=== PATIENT | male | born 1960 | race Caucasian/White ===

== ENCOUNTER 2019-09-28 05:19 | Inpatient (IN) ==
--- NOTE | 2019-09-11 16:11 | PAT Medication Instructions ---
Medication Instructions Date of Service September 11, 2019 Home Medications aspirin [Aspir-81] 81 mg PO DAILY diclofenac sodium 2 g TOPICAL UD PRN diclofenac sodium 50 mg PO BID PRN diltiazem HCl 240 mg PO QAM gabapentin 100 mg PO DAILY hydrochlorothiazide 25 mg PO QAM levothyroxine [Synthroid] 50 mcg PO QAM magnesium 420 mg PO BID metformin 500 mg PO BID omeprazole 20 mg PO QPM potassium gluconate 595 mg PO DAILY trandolapril 4 mg PO BID ASK your surgeon for instructions diclofenac sodium 50 mg PO BID PRN STOP taking 24 hours before surgery diclofenac sodium 2 g TOPICAL UD PRN DO NOT take the morning of surgery hydrochlorothiazide 25 mg PO QAM magnesium 420 mg PO BID metformin 500 mg PO BID potassium gluconate 595 mg PO DAILY trandolapril 4 mg PO BID Take morning of surgery With a small sip of water, OTHERWISE NOTHING TO EAT OR DRINK AFTER MIDNIGHT: aspirin [Aspir-81] 81 mg PO DAILY diltiazem HCl 240 mg PO QAM gabapentin 100 mg PO DAILY levothyroxine [Synthroid] 50 mcg PO QAM Take evening before surgery magnesium 420 mg PO BID metformin 500 mg PO BID omeprazole 20 mg PO QPM trandolapril 4 mg PO BID Other Notes If you have any questions please call us at [phone] or [phone] or [phone] or [phone]
--- NOTE | 2019-09-15 09:42 | Anesthesiology Consultation ---
Date of Service September 15, 2019 Assessment & Plan (1) Encounter for pre-operative examination: Per PAT assessment on 09/14: Travel screen- + [place] ([place]) for physical therapy. No known COVID-19 positive contacts. No current COVID-19 related symptoms. Surgeon arranging preop COVID testing. Awaiting results. - Check BSG AM DOS Chart Review Chart Review: Acceptable Risk for Surgery (pending COVID testing) and Patient seen in Pre Admission Testing Teaching & Discussion Pre-Anesthesia Teaching/Discussion Notes: Instructed NPO after midnight before surgery,except medications with 15 cc of water. Medication instructions provided according to the PAT guidelines. History Surgery Operation Date: 09/28/19 11:10 Proposed Procedures p Bilateral Total Knee Arthroplasty - aTno Vásquez DO Height/Weight Height: 6 ft 3 in Weight: 133 kg Allergies Allergy/AdvReac Type Severity Reaction Status Date / Time amoxicillin [From Augmentin] Allergy Unknown facial Verified 09/15/19 10:23 swelling, diffuse bumps clavulanic acid Allergy Unknown facial Verified 09/15/19 10:23 [From Augmentin] swelling, diffuse bumps latex Allergy Unknown skin Verified 09/15/19 10:23 irritation nickel Allergy Unknown per Verified 09/15/19 10:23 allergy testing clarithromycin [From Biaxin] AdvReac Unknown vomiting Verified 09/15/19 10:23 BANDAIDS Allergy Unknown skin Uncoded 09/15/19 10:23 irritation Medications Home Medications Medication Instructions Recorded Confirmed Last Taken aspirin [Aspir-81] 81 mg PO DAILY 09/08/19 09/08/19 Unknown diclofenac sodium 2 g TOPICAL UD PRN 09/08/19 09/08/19 Unknown diclofenac sodium 50 mg PO BID PRN 09/08/19 09/08/19 Unknown diltiazem HCl 240 mg PO QAM 09/08/19 09/08/19 Unknown gabapentin 100 mg PO DAILY 09/08/19 09/08/19 Unknown hydrochlorothiazide 25 mg PO QAM 09/08/19 09/08/19 Unknown levothyroxine [Synthroid] 50 mcg PO QAM 09/08/19 09/08/19 Unknown magnesium 420 mg PO BID 09/08/19 09/08/19 Unknown metformin 500 mg PO BID 09/08/19 09/08/19 Unknown omeprazole 20 mg PO QPM 09/08/19 09/08/19 Unknown potassium gluconate 595 mg PO DAILY 09/08/19 09/08/19 Unknown trandolapril 4 mg PO BID 09/08/19 09/08/19 Unknown Past Medical History Medical History (Updated 09/15/19 @ 15:43 by Ana Maria Reid) Acid reflux controlled Arthritis Back problem CKD (chronic kidney disease) mild/borderline- PCP monitoring Diabetes NIDDM High blood pressure High cholesterol Hypothyroidism Migraine follows with neurology ([place] Dr. [place]) Neuropathy toes Obesity Radiculopathy right quad/+ physical therapy Exercise / Class Metabolic Activity III < 4 Walking/Shop/Light housework Past Family History Family History Sister Family history of diabetes mellitus Father Family history of diabetes mellitus Past Surgical History Surgical History History of colonoscopy History of surgery GROIN (FATTY TUMOR EXCISION) History of tonsillectomy Past Anesthesia History No Family Hx of Anesthesia Complications and Other (angry/combative with anesthesia emergence (~2005/) ) History of PONV No Hx of PONV and No Hx of Motion Sickness Social History Smoking Status: Former smoker Do You Dip or Chew Tobacco: No (HX OF QUIT ) Smoking End Date: 1982 Hx Alcohol Use: Yes (HX OF , NONE CURRENT) Hx Substance Use: No substance use type: does not use Review of Systems Patient denies chest pain, shortness of breath, fever, chills, cough, wheezing, palpitations. Physical Exam Vital Signs VITALS BP 116/73 P 56 TEMP "normal" at [facility] entrance/declined updated at PAT visit SP02 95%RA RESP 18 PHYSICAL Full neck and c-spine range of motion. Full TMJ range of motion. TMD 3.5 finger breaths Mallampati Score 3 Dentition: upper partial, + crown on sides Lungs: clear throughout to auscultation Cardiac: regular rate and rhythm, no murmurs noted Spine: normal Carotid arteries: negative bruit Extremities: no edema Trimmed alvarado Testing Laboratory Results PT 10.4 Seconds (9.0-12.0) 09/15/19 10:18 INR 1.0 (0.9-1.1) 09/15/19 10:18 APTT 28.4 Seconds (21.0-31.0) 09/15/19 10:18 Blood Type A Positive 09/15/19 10:18 Antibody Screen NEGATIVE 09/15/19 10:18 09/03/19 WBC 6.6 H/H 15.0/46.1 PLATELETS 206 SODIUM 139 POTASSIUM 4.4 CHLORIDE 103 CO2 26 BUN 32 CREATININE 1.5 (WNL per [place] lab ranges) GLUCOSE 122 HGBA1C 6.3% Electrocardiogram Date: 07/14/19 SB with occasional PVC's at 59bpm. LAD. Chest X-Ray Date: 09/15/19 Findings: + NAD Echocardiogram Date: 09/22/18 LVEF 57%. Mild cLVH. Mild LAD/YVETTE. Trivial to mild MR. Mild TR. Trivial KS.
--- NOTE | 2019-09-15 10:49 | XRay Report ---
XR chest Pre-admission PA/Lat HISTORY: 59 years-old Male pat preoperative exam. No acute chest complaints COMPARISON: None TECHNIQUE: PA and lateral views of the chest FINDINGS: Cardiomediastinal and hilar silhouettes are within normal limits. No pneumothorax, pleural effusion, airspace consolidation or overt pulmonary edema. Bones of the chest appear grossly intact. IMPRESSION: No acute process. ACT 112: Negative or not required by law. The above report was generated using voice recognition software. It may contain grammatical, syntax o r spelling errors. Electronically signed by: Jean-Claude Mccarty M.D. 09/15/2019 10:48 AM
[2019-09-15 13:32] LABS: Partial Thromboplastin Time 28.4 Seconds (21.0-31.0); Prothrombin Time 10.4 Seconds (9.0-12.0)
--- NOTE | 2019-09-24 08:11 | History & Physical Report ---
Date of Service September 24, 2019 Assessment & Plan (1) Right knee DJD: We will proceed with bilateral total knee arthroplasties. Postoperatively he will be started on aspirin for DVT prophylaxis and kept overnight in the hospital for postoperative medical management. He plans to go to [facility] upon discharge. Alfonzo is a low risk for joint placement surgery without any major comorbidities. Present on Admission?: Yes (2) Left knee DJD: History of Present Illness Chief Complaint: Primary osteoarthritis of both knees Primary Care Provider: Ronald Prather MD Alfonzo is a pleasant 59-year-old male who is been ill with chronic increasing bilateral knee pain. He has been followed by my partner who was giving him serial injections of his knees. Unfortunately injections are not effective anymore. X-rays and clinical examination have been diagnostic for advanced osteoarthritis of both knees. After failing extensive conservative treatment, he has elected to proceed with bilateral total knee arthroplasties. Allergies Allergy/AdvReac Type Severity Reaction Status Date / Time amoxicillin [From Augmentin] Allergy Unknown facial Verified 09/15/19 10:23 swelling, diffuse bumps clavulanic acid Allergy Unknown facial Verified 09/15/19 10:23 [From Augmentin] swelling, diffuse bumps latex Allergy Unknown skin Verified 09/15/19 10:23 irritation nickel Allergy Unknown per Verified 09/15/19 10:23 allergy testing clarithromycin [From Biaxin] AdvReac Unknown vomiting Verified 09/15/19 10:23 BANDAIDS Allergy Unknown skin Uncoded 09/15/19 10:23 irritation Home Medications Home Medications Medication Instructions Recorded Confirmed Type aspirin [Aspir-81] 81 mg PO DAILY 09/08/19 09/08/19 History diclofenac sodium 2 g TOPICAL UD PRN 09/08/19 09/08/19 History diclofenac sodium 50 mg PO BID PRN 09/08/19 09/08/19 History diltiazem HCl 240 mg PO QAM 09/08/19 09/08/19 History gabapentin 100 mg PO DAILY 09/08/19 09/08/19 History hydrochlorothiazide 25 mg PO QAM 09/08/19 09/08/19 History levothyroxine [Synthroid] 50 mcg PO QAM 09/08/19 09/08/19 History magnesium 420 mg PO BID 09/08/19 09/08/19 History metformin 500 mg PO BID 09/08/19 09/08/19 History omeprazole 20 mg PO QPM 09/08/19 09/08/19 History potassium gluconate 595 mg PO DAILY 09/08/19 09/08/19 History trandolapril 4 mg PO BID 09/08/19 09/08/19 History Past Med/Surg History Medical History Acid reflux controlled Arthritis Back problem CKD (chronic kidney disease) mild/borderline- PCP monitoring Diabetes NIDDM High blood pressure High cholesterol Hypothyroidism Migraine follows with neurology ([place]) Neuropathy toes Obesity Radiculopathy right quad/+ physical therapy Surgical History History of colonoscopy History of surgery GROIN (FATTY TUMOR EXCISION) History of tonsillectomy Family History Sister Family history of diabetes mellitus Father Family history of diabetes mellitus Social History Smoking Status: Former smoker Hx Alcohol Use: Yes (HX OF , NONE CURRENT) Hx Substance Use: No Preferred Language: Bruneian Communication Ability: Effective Teacher Of The Sight Impaired Required: No Beliefs That Will Affect Care: Jewish Jewish Beliefs: BAHAI Current Living Situation: Spouse Feels Safe at Home: Yes Review of Systems Review of Systems: All systems reviewed & are unremarkable except as noted in HPI & below Physical Exam Constitutional: WD/WN, vitals as above Eyes: PERRL, conjunctivae normal, anicteric sclerae ENMT: external ear and nose normal, oropharynx normal Neck: trachea midline, no thyromegaly Respiratory: normal respiratory effort Cardiovascular: RRR, no murmur, no edema Gastrointestinal (Abdomen): normal bowel sounds, soft, nontender, no hepatosplenomegaly Musculoskeletal: On physical examination of both knees there is a trace effusion. There is near full range of motion and no evidence of instability. There is significant tenderness palpation along the medial and lateral joint lines and over the distal femoral condyles. Psychiatric: A+Ox3, euthymic affect Results & Data Results & Data ([facility]) Diagnostic Findings Radiographs of the knees demonstrate advanced osteoarthritis with joint space narrowing osteophyte formation and chvi-[id number]-wlkg articulation. PG Care Time/CCT Total # of Minutes Spent Total Time Spent with Patient: Total time spent is greater than 50% in coordination of care (as documented) at patient's floor/unit and/or counseling patient: Coding Level of Care Code 37457 Initial Inpt Care Lvl 3 Diagnoses Right knee DJD M17.11 Left knee DJD M17.12
[2019-09-28] MEDS ORDERED: LR 500ML BOLUS, THEN 15ML/HR IV SCH (06:00)
[2019-09-28] MEDS ORDERED: LR 60ML/HR IV SCH (06:00)
[2019-09-28] MEDS ORDERED: ACETAMINOPHEN 500 MG TAB PO SCH (06:00)
[2019-09-28] MEDS ORDERED: TRANEXAMIC ACID 1,000 MG **IV Intra-op IV SCH (06:00)
[2019-09-28] MEDS ORDERED: FAMOTIDINE 20 MG TAB PO SCH (06:00)
[2019-09-28] MEDS ORDERED: CEFAZOLIN 3000MG 72.5 ML IV SCH (06:00)
[2019-09-28] MEDS ORDERED: TRANEXAMIC ACID 1,000 MG **IV Pre-op IV SCH (06:00)
[2019-09-28] MEDS ORDERED: dexAMETHasone 4 MG TAB PO SCH (06:00)
[2019-09-28] MEDS ORDERED: ROPIVACAINE 0.5% HCL/PF 150 MG, BUPIVACAINE 0.5% MPF 30 ML, EPINEPHrine 30MG/30ML (OR U... INSTIL SCH (06:00)
[2019-09-28] MEDS ORDERED: GABAPENTIN 600 MG DOSE PO SCH (06:00)
[2019-09-28] MEDS ORDERED: BUPIVACAINE 0.5 % 5 MG/1 ML PF 10ML VIAL ONE (06:35)
[2019-09-28] MEDS ORDERED: BUPIVACAINE 0.25% 30 ML VIAL ONE (06:35)
--- NOTE | 2019-09-28 06:46 | History & Physical Bridge Note ---
Date of Service September 28, 2019 History & Physical Bridge Note I have examined the patient, reviewed the History & Physical and in the interval since the performance of the History & Physical I have noted the following changes of clinical significance: no changes noted
[2019-09-28] MEDS ORDERED: MIDAZOLAM HCL 1 MG/ML 2ML VIAL ONE (06:50)
[2019-09-28] MEDS ORDERED: fentaNYL citrate 100 MCG/2 ML VIAL ONE (06:50)
[2019-09-28] MEDS ORDERED: ORTHO JOINT ANESTHETIC ONE (07:01)
[2019-09-28] MEDS ORDERED: CEFAZOLIN 3000MG 72.5 ML IV ONE (07:12)
[2019-09-28] MEDS ORDERED: CEFAZOLIN 3000MG/72.5 ML BAG IV ONE (07:19)
[2019-09-28] MEDS ORDERED: ePHEDrine sulfate 50 MG/ML SYR ONE (08:07)
[2019-09-28] MEDS ORDERED: ONDANSETRON INJ 2 MG/ML 2 ML VIAL IV PRN ×2 (08:07→11:30)
[2019-09-28] MEDS ORDERED: LIDOCAINE HCL 2% 2 ML VIAL/AMP(20MG/ML) INFIL ONE (08:07)
[2019-09-28] MEDS ORDERED: ePHEDrine sulfate 50 MG/ML AMP IV PRN (08:07)
[2019-09-28] MEDS ORDERED: ONDANSETRON INJ 2 MG/ML 2 ML VIAL ONE (08:07)
[2019-09-28] MEDS ORDERED: ATROPINE SULFATE 0.1 MG/ML 10ML SYR IV PRN (08:07)
[2019-09-28] MEDS ORDERED: PROPOFOL IV EMULSION 10 MG/ML 20 ML VIAL IV ONE (08:07)
[2019-09-28] MEDS ORDERED: GLYCOPYRROLATE 0.2 MG/ML VIAL ONE (08:07)
--- NOTE | 2019-09-28 10:19 | Operative Report ---
PG Post Operative Report Pre & Post Diagnosis Operation Date: 09/28/19 07:15 Pre-Op Diagnosis: BILATERAL KNEE DEGENERATIVE JOINT DISEASE Post-Op Diagnosis: BILATERAL KNEE DEGENERATIVE JOINT DISEASE I identified the patient and participated in the time-out.: Yes Procedure Operation Date: 09/28/19 07:15 Actual Procedures p Bilateral Total Knee Arthroplasty, Cemented(Bilateral) - Tano Vásquez DO Surgeon Tano áVsquez DO Promotions Executive Producer Tano Cintron PAC Estimated Blood Loss 50 Findings Consistent with Post-Op Diagnosis Specimens Bilateral femoral and tibial bone Complications none Disposition Disposition: Recovery Room Indications Alfonzo is a pleasant 59-year-old male who is been dealing with chronic increasing bilateral knee pain. X-rays and clinical examination have been diagnostic for primary osteoarthritis of both knees. After failing conservative treatment, he elected proceed with bilateral total knee arthroplasties. Description of Procedure Alfonzo arrived [facility] for the above procedure. He was seen in the preoperative holding area and both knees were identified and signed. He was given a preoperative antibiotic, TXA, a spinal anesthetic and adductor nerve blocks. He was taken back to the operating room and laid on the table in supine position. He was given basic sedation. Both knees were then prepped and draped in sterile fashion. A timeout was done, and the patient and the operative extremities were properly identified. Right knee implants used: I used a Vivian Persona total knee arthroplasty system with a size 12 standard femur, J tibia, 35 patella, and a size 10 medial congruent polyethylene bearing. All components were cemented in place with Palacos G cement. A midline incision was made directly over the patella. Dissection was taken down to the extensor mechanism. A subvastus arthrotomy was used. The medial retinaculum was released and the fat pad was mostly excised. The knee was flexed and the ACL, PCL, and meniscus were removed. A drill was sent down the center of the femoral canal followed by an intramedullary thuan. Off that thuan a distal femoral cutting block was placed. 9 mm was resected off the distal femur at 5 of valgus. A posterior referencing AP sizing guide was then placed on the distal femur. The femur measured to be a size 12. 2 drill holes were placed in 3 of external rotation. A 4-in-1 cutting block was then impacted into place. Anterior, posterior, and chamfer cuts were then made. The proximal tibia was then exposed. An external tibial alignment guide was placed. A tibial cut guide was then anchored in place to resect 2 mm off the low medial side. The proximal tibia was then resected. The tibia measured to be a size J. The tibial plate was then placed in the appropriate rotation and the tibia was drilled and punched. The posterior aspect of the knee was then opened up and any additional meniscus fragments and osteophytes were removed. Trial components were then placed. I used a size 10 medial congruent polyethylene insert. The knee was brought through a full range of motion and felt to be stable. The patella was then everted and 8 mm was resected off the posterior aspect of the patella. The patella measured to be a size 35. 3 peg holes were then drilled. A trial patella was placed. The knee was once again brought through a full range of motion and felt to be stable. Trial components were then removed. The surrounding soft tissues were injected with 50 cc of an orthopedic pain control cocktail. All components were then cemented into place with Palacos G cement. The final polyethylene insert was then snapped into place and the anterior bar was locked. Once cement was dry the tourniquet was deflated. Hemostasis was obtained. A dilute betadyne lavage was then done for 3 minutes. The joint was then irrigated with normal saline solution. The subvastus arthrotomy was then closed with #1 Vicryl suture. The skin was closed with 2-0 Vicryl, 3-0V lock suture, and daniele. A soft compressive dressing was placed. Left knee implants used: I used a Vivian Persona total knee arthroplasty system with a size 12 standard femur, J tibia, 35 patella, and a size 11 medial congruent polyethylene bearing. All components were cemented in place with Palacos G cement. A midline incision was made directly over the patella. Dissection was taken down to the extensor mechanism. A subvastus arthrotomy was used. The medial retinaculum was released and the fat pad was mostly excised. The knee was flexe d and the ACL, PCL, and meniscus were removed. A drill was sent down the center of the femoral canal followed by an intramedullary thuan. Off that thuan a distal femoral cutting block was placed. 9 mm was resected off the distal femur at 5 of valgus. A posterior referencing AP sizing guide was then placed on the distal femur. The femur measured to be a size 12. 2 drill holes were placed in 3 of external rotation. A 4-in-1 cutting block was then impacted into place. Anterior, posterior, and chamfer cuts were then made. The proximal tibia was then exposed. An external tibial alignment guide was placed. A tibial cut guide was then anchored in place to resect 2 mm off the low medial side. The proximal tibia was then resected. The tibia measured to be a size J. The tibial plate was then placed in the appropriate rotation and the tibia was drilled and punched. The posterior aspect of the knee was then opened up and any additional meniscus fragments and osteophytes were removed. Trial components were then placed. I used a size 11 medial congruent polyethylene insert. The knee was brought through a full range of motion and felt to be stable. The patella was then everted and 8 mm was resected off the posterior aspect of the patella. The patella measured to be a size 35. 3 peg holes were then drilled. A trial patella was placed. The knee was once again brought through a full range of motion and felt to be stable. Trial components were then removed. The surrounding soft tissues were injected with 50 cc of an orthopedic pain control cocktail. All components were then cemented into place with Palacos G cement. The final polyethylene insert was then snapped into place and the anterior bar was locked. Once cement was dry the tourniquet was deflated. Hemostasis was obtained. A dilute betadyne lavage was then done for 3 minutes. The joint was then irrigated with normal saline solution. The subvastus arthrotomy was then closed with #1 Vicryl suture. The skin was closed with 2-0 Vicryl, 3-0V lock suture, and daniele. A soft compressive dressing was placed. He was then transferred to a hospital bed and taken to the postanesthesia care unit in stable condition. He tolerated the procedure well. Tano Citnron PA-C, was present for the entire procedure. He was critical for patient positioning, prepping, draping, retraction exposure, wound closure and application of sterile dressing. I attest to the content of the Intraoperative Record and any orders documented therein. Any exceptions are noted below.
[2019-09-28] MEDS: fentaNYL citrate 100 MCG/2 ML VIAL IV PRN ×2 (10:35→10:40)
--- NOTE | 2019-09-28 10:45 | XRay Report ---
XR knee LT 1 or 2V routine CLINICAL HISTORY: Surgical Post Op postoperative evaluation COMPARISON: None. DISCUSSION: Anatomic alignment post total left knee arthroplasty. Good contact between prosthetic and underlying bone. Expected postoperative soft tissue change IMPRESSION: Anatomic alignment post total left knee arthroplasty. ACT 112: Negative or not required by law. The above report was generated using voice recognition software. It may contain grammatical, syntax or spelling errors. Electronically signed by: El Dutta M.D. 09/28/2019 10:44 AM
--- NOTE | 2019-09-28 10:59 | XRay Report ---
TWO VIEWS RIGHT KNEE CLINICAL HISTORY: Postoperative examination. FINDINGS: AP and crosstable lateral portable views of the right knee are obtained. A right knee arthr oplasty is in near anatomic alignment. There has been undersurface remodeling of the patella. No acut e fracture is seen. There are expected postoperative changes around the knee including skin clips, a surgical drain, soft tissue edema, and subcutaneous gas. IMPRESSION: Expected postoperative changes status post right knee arthroplasty. No acute fracture is seen. ACT 112: Negative or not required by law. Electronically signed by: Frank Ozuna M.D. 09/28/2019 10:58 AM
[2019-09-28] MEDS ORDERED: METOCLOPRAMIDE HCL INJ 5 MG/ML 2 ML VIAL IV PRN (11:30)
[2019-09-28] MEDS ORDERED: bisacodyL 10 MG SUPP PR PRN (11:30)
[2019-09-28] MEDS ORDERED: CEFAZOLIN 2000MG 2,000 MG/15 ML SYR IV SCH (11:30)
[2019-09-28] MEDS ORDERED: HYDROmorphone INJ 0.5 MG/0.5 ML SYR IV PRN (11:30)
[2019-09-28] MEDS ORDERED: NALOXONE HCL 0.4 MG/1 ML VIAL/CARP IV PRN (11:30)
[2019-09-28] MEDS: SODIUM CHLORIDE 0.9% 1000ML 1,000 ML IV SCH ×2 (11:58→20:53)
[2019-09-28] MEDS: KETOROLAC 30 MG/ML VIAL IV SCH ×2 (12:16→17:38)
--- NOTE | 2019-09-28 12:32 | Anesthesiology Progress Note ---
Date of Service September 28, 2019 Anesthesia Post Procedure Vital Signs Vital Signs: Temp Pulse Pulse Resp BP Pulse Ox 09/28/19 12:15 36.6 C 46 L 18 133/82 95 09/28/19 11:45 36.6 C 48 L 16 117/77 98 09/28/19 11:15 36.4 C L 49 L 16 127/75 96 09/28/19 10:50 36.6 C 54 L 16 116/71 98 09/28/19 10:40 57 L 16 118/59 L 98 09/28/19 10:30 36.6 C 61 16 127/77 95 09/28/19 10:20 60 16 117/66 95 09/28/19 10:14 36.6 C 63 16 114/61 95 09/28/19 05:56 37 C 64 18 132/85 95 Pain Intensity Right Leg: Pain Intensity: 5 Transfer of Care Handoff Completed per policy Notes Mental Status: alert / awake / arousable and participated in evaluation Nausea / Vomiting: adequately controlled Pain: adequately controlled Airway Patency, RR, SpO2: stable & adequate BP & HR: stable & adequate Hydration State: stable & adequate Neuraxial Anesthesia: was administered and sensory block is resolving Anesthetic Complications: no major complications apparent and Pt Satisfied with anesthetic care
[2019-09-28] MEDS ORDERED: PHARMACY GLYCEMIC MGMT CONSULT PRN (12:49)
[2019-09-28] MEDS ORDERED: INSULIN GLARGINE SOLOSTAR 100 UNITS/ML 3 ML PEN SC ONE ×2 (13:00→21:00)
--- NOTE | 2019-09-28 13:14 | Pharmacy Report ---
Pharmacy Glycemic Short Note 2 - Date of Service September 28, 2019 - Glycemic Short BSG Results (Last 24 hours): 09/28/19 09/28/19 09/28/19 06:06 10:18 12:17 POC Glucose 130 H 160 H 173 H OUTPATIENT ANTIDIABETIC REGIMEN: * Metformin 500mg PO BID * HbA1c: pending with AM labs ASSESSMENT: * Mr Hoyt is a 59yo diabetic male POD 0 s/p bilateral TKA this morning. * Patient received DXM 8mg PO pre-op this morning along with DXM in his ortho mix. Mr Hoyt is scheduled to receive an additional PO dose of DXM tomorrow morning. This is expected to contribute to significant steroid-induced hyperglycemia. * On admission, oral agents held and pt initiated on basal/bolus insulin regimen in an effort to maintain adequate glycemic control to promote wound healing and minimize risk of infection. PLAN FOR INPATIENT GLYCEMIC CONTROL: * Hold outpatient oral diabetes medications * Basal insulin * Lantus 30 units SQ x1 dose on admission, then * Lantus at bedtime per scale (see MAR for details) * Bolus insulin * NovoLog per scale ACHS or Q6hrs while NPO * Goal Range: Low 110 mg/dL - High 140 mg/dL * Correction Factor: 15 mg/dL/unit * Nutritional / Prandial insulin per carb ratio of 1 unit per 6 grams CHO consumed PLAN FOR DISCHARGE: * pending A1c results
[2019-09-28] MEDS ORDERED: GLUCAGON FOR INJ 1 MG VIAL IM PRN (13:15)
[2019-09-28] MEDS ORDERED: GLUCOSE 10 TABS/TUBE PO PRN (13:15)
[2019-09-28] MEDS ORDERED: DEXTROSE 50% 50 ML SYRINGE IV PRN (13:15)
[2019-09-28] MEDS ORDERED: CARBOHYDRATES FOR HYPOGLYCEMIA PO PRN (13:15)
[2019-09-28] MEDS ORDERED: GLUCOSE 40% GEL 15 GM TUBE PO PRN (13:15)
[2019-09-28] MEDS: ACETAMINOPHEN 500 MG TAB PO SCH ×2 (13:18→21:01)
[2019-09-28] MEDS: INSULIN ASPART 100 UNITS/ML 3 ML PEN SC SCH ×3 (13:42→20:54)
[2019-09-28] MEDS: MAGNESIUM OXIDE 400 MG TAB PO SCH (15:36)
[2019-09-28] MEDS: CEFAZOLIN 2000MG 2,000 MG/15 ML SYR IV SCH (15:37)
[2019-09-28] MEDS: OXYCODONE HCL IR 5 MG TAB (IMMEDIATE RELEASE) PO PRN ×2 (15:39→20:59)
[2019-09-28] MEDS: SENNA 8.6 MG TAB PO SCH (20:12)
[2019-09-28] MEDS: DOCUSATE SODIUM 100 MG CAP PO SCH (20:12)
[2019-09-28] MEDS: PANTOprazole 40 MG TAB PO SCH (20:13)
[2019-09-28] MEDS: lisinopriL 20 MG TAB PO SCH (20:14)
[2019-09-28] MEDS: ASPIRIN 81 MG ECTAB PO SCH (20:16)
[2019-09-29] MEDS: CEFAZOLIN 2000MG 2,000 MG/15 ML SYR IV SCH (00:13)
[2019-09-29] MEDS: KETOROLAC 30 MG/ML VIAL IV SCH ×4 (00:14→17:17)
[2019-09-29] MEDS: OXYCODONE HCL IR 5 MG TAB (IMMEDIATE RELEASE) PO PRN ×4 (03:50→21:30)
[2019-09-29 05:52] LABS: Hematocrit (blood only) 33.6 % (42-52); Hemoglobin 11.3 g/dL (14.0-18.0); Mean Corpuscular Hemoglobin 30.1 pg (25-34); Mean Corpuscular Hgb Conc 33.6 g/dL (32-36); Mean Corpuscular Volume 89.4 fL (80-100); Mean Platelet Volume 10.8 fL (7.4-10.4); Platelet Count 174 K/uL (130-400); RDW Coefficient of Variation 13.3 % (11.5-14.5); RDW Standard Deviation 43.2 fL (36.4-46.3); Red Blood Count 3.76 M/uL (4.7-6.1); White Blood Count 12.43 K/uL (4.8-10.8)
[2019-09-29] MEDS: hydroCHLOROthiazide 25 MG TAB PO SCH (06:12)
[2019-09-29] MEDS: MAGNESIUM OXIDE 400 MG TAB PO SCH ×2 (06:12→20:04)
[2019-09-29] MEDS: lisinopriL 20 MG TAB PO SCH ×2 (06:12→20:04)
[2019-09-29] MEDS: dilTIAZem HCL 240 MG CAPCR PO SCH (06:13)
[2019-09-29] MEDS: LEVOTHYROXINE SODIUM 50 MCG TABLET PO SCH (06:13)
[2019-09-29] MEDS: ACETAMINOPHEN 500 MG TAB PO SCH ×3 (06:14→21:31)
[2019-09-29] MEDS: DOCUSATE SODIUM 100 MG CAP PO SCH ×2 (06:14→20:04)
[2019-09-29] MEDS: ASPIRIN 81 MG ECTAB PO SCH ×2 (06:15→20:03)
[2019-09-29 06:21] LABS: BUN Creatinine Ratio 16.7 (10-20); Calcium 8.4 mg/dl (8.5-10.1); Creatinine Clr Calc Pharmacy 101.1 ml/min; Est GFR (African American) 83.5; Est GFR (Non-African American) 72.1; Potassium 3.8 mmol/L (3.5-5.1)
[2019-09-29] MEDS: MAGNESIUM HYDROXIDE SUSP 30 ML UDC PO PRN ×2 (06:25→16:01)
[2019-09-29 06:30] LABS: Estimated Average Glucose 126 mg/dl
--- NOTE | 2019-09-29 07:12 | Orthopedic Progress Note ---
Date of Service September 29, 2019 Assessment & Plan (1) Status post bilateral knee replacements: Overall he is doing as well as expected. He is on aspirin for DVT today for ambulation and range of motion exercises. We will keep him in the hospital today for pain control. We plan to discharge him to [facility] tomorrow. Present on Admission?: Yes Subjective Alfonzo was seen and examined at bedside this morning. Overall he is doing fairly well. He has been up and ambulating around the nurses station. He has been doing his exercises. He is not having much pain in the knees. He has no complaints. Physical Exam Musculoskeletal: Semination of both knees, the dressings are clean and dry. His legs are out in full extension. He has active dorsiflexion and plantar Results & Data ([facility]) Vital Signs (Past 12 Hours) Vital Signs Temp Pulse Resp BP Pulse Ox 09/29/19 06:58 36.3 C L 47 L 16 119/66 96 09/29/19 03:17 36.3 C L 59 L 16 104/62 95 09/28/19 23:10 36.3 C L 52 L 16 117/69 94 Laboratory Results H & H 09/29/19 Range/Units 05:17 Hgb 11.3 L (14.0-18.0) g/dL Hct 33.6 L (42-52) % Coagulation 09/15/19 Range/Units 10:18 INR 1.0 (0.9-1.1) Diagnostic Findings Postoperative x-rays of both knees show the prosthesis to be in anatomic alignment without any evidence of fracture, dislocation, or loosening PG Care Time/CCT Total # of Minutes Spent Total Time Spent with Patient: Total time spent is greater than 50% in coordination of care (as documented) at patient's floor/unit and/or counseling patient: Coding Level of Care Code None Diagnoses Status post bilateral knee replacements Z96.653
[2019-09-29] MEDS ORDERED: dexAMETHasone 4 MG TAB PO SCH (08:00)
[2019-09-29] MEDS ORDERED: INSULIN GLARGINE SOLOSTAR 100 UNITS/ML 3 ML PEN SC ONE ×2 (08:00→09:00)
[2019-09-29] MEDS: MULTIVITAMIN TAB PO SCH (08:38)
[2019-09-29] MEDS: INSULIN ASPART 100 UNITS/ML 3 ML PEN SC SCH ×4 (08:42→20:05)
[2019-09-29] MEDS ORDERED: NON-FORMULARY MEDICATION (Potassium Gluconate 595 MG) PO SCH (09:00)
--- NOTE | 2019-09-29 10:14 | Pharmacy Report ---
Pharmacy Glycemic Short Note 2 - Date of Service September 29, 2019 - Glycemic Short BSG Results (Last 24 hours): 09/28/19 09/28/19 09/28/19 10:18 12:17 17:12 Glucose POC Glucose 160 H 173 H 199 H 09/28/19 09/29/19 09/29/19 20:31 05:17 08:17 Glucose 156 H POC Glucose 179 H 156 H OUTPATIENT ANTIDIABETIC REGIMEN: * Metformin 500mg PO BID * HbA1c: 6.0% (09/29/19) ASSESSMENT: 09/29/19: * Mr Hoyt received 55 units of insulin yesterday. * 40 units of basal insulin * 15 units of prandial/correctional insulin * BSGs ranged from 130-199 during the past 24 hours. * Patient received another dose of PO dexamethasone this morning, so another dose of Lantus was ordered this morning. Fasting BSG indicates that basal insulin dosing was appropriate yesterday. * Will tighten Novolog parameters if it does not appear as though BSGs are adequately controlled today. 09/28/19 * Mr Hoyt is a 59yo diabetic male POD 0 s/p bilateral TKA this morning. * Patient received DXM 8mg PO pre-op this morning along with DXM in his ortho mix. Mr Hoyt is scheduled to receive an additional PO dose of DXM tomorrow morning. This is expected to contribute to significant steroid-induced hy perglycemia. * On admission, oral agents held and pt initiated on basal/bolus insulin regimen in an effort to maintain adequate glycemic control to promote wound healing and minimize risk of infection. PLAN FOR INPATIENT GLYCEMIC CONTROL: * Hold outpatient oral diabetes medications * Basal insulin * Lantus 40 units x1 dose this morning * No further Lantus orders anticipated at this time. If additional doses of DXM are ordered, will re-assess. * Bolus insulin * NovoLog per scale ACHS or Q6hrs while NPO * Goal Range: Low 110 mg/dL - High 140 mg/dL * Correction Factor: 15 mg/dL/unit * Nutritional / Prandial insulin per carb ratio of 1 unit per 6 grams CHO consumed PLAN FOR DISCHARGE: * Patient's A1c (6.0%) indicates excellent glycemic control as an outpt. * Expect that patient may resume home regimen on discharge, as long as he does not report having episodes of hypoglycemia.
[2019-09-29] MEDS ORDERED: SOD PHOSPHATE/SOD BIPHOSPHATE ENEMA 132 ML BTL PR STA (16:34)
[2019-09-29] MEDS ORDERED: bisacodyL 5 MG TABEC PO ONE (19:38)
[2019-09-29] MEDS: SENNA 8.6 MG TAB PO SCH (20:03)
[2019-09-29] MEDS: PANTOprazole 40 MG TAB PO SCH (20:04)
[2019-09-30] MEDS: KETOROLAC 30 MG/ML VIAL IV SCH ×2 (00:55→06:23)
[2019-09-30] MEDS: ACETAMINOPHEN 500 MG TAB PO SCH ×3 (06:20→22:04)
[2019-09-30] MEDS: DOCUSATE SODIUM 100 MG CAP PO SCH ×2 (06:21→20:56)
[2019-09-30] MEDS: ASPIRIN 81 MG ECTAB PO SCH ×2 (06:21→20:56)
[2019-09-30] MEDS: LEVOTHYROXINE SODIUM 50 MCG TABLET PO SCH (06:21)
[2019-09-30] MEDS: MAGNESIUM OXIDE 400 MG TAB PO SCH ×2 (06:21→20:56)
[2019-09-30] MEDS: dilTIAZem HCL 240 MG CAPCR PO SCH (06:21)
[2019-09-30] MEDS: hydroCHLOROthiazide 25 MG TAB PO SCH (06:21)
[2019-09-30] MEDS: MULTIVITAMIN TAB PO SCH (06:21)
[2019-09-30] MEDS: lisinopriL 20 MG TAB PO SCH ×2 (06:21→20:57)
--- NOTE | 2019-09-30 07:23 | Orthopedic Progress Note ---
Date of Service September 30, 2019 Assessment & Plan (1) Status post bilateral knee replacements: Overall he is doing very well. Is not having too much pain in the knees. He is participating well with physical therapy. He is concerned about being discharged to home and being able to take care of himself, especially after bilateral knee replacements. We will likely get him set up to [facility] later today. He can follow-up with orthopedics in 2 weeks. He is on aspirin for DVT prophylaxis. Present on Admission?: Yes Subjective Alfonzo was seen and examined at bedside this morning. Overall he is doing very well. Is not having too much pain in the knees. He has been up and ambulating around the nurses station. He was able to have a bowel movement yesterday after multiple laxatives. He has no complaints. Physical Exam Musculoskeletal: On physical examination of both knees, the dressings have been changed and the Silverlon dressing is clean and dry. His leg lengths are equal. He has active dorsiflexion and plantarflexion of both ankles. Results & Data ([facility]) Vital Signs (Past 12 Hours) Vital Signs Temp Pulse Resp BP Pulse Ox 09/30/19 06:51 36.4 C L 71 18 157/78 H 95 09/30/19 06:29 71 157/78 H 09/29/19 23:51 36.4 C L 71 18 147/74 H 95 PG Care Time/CCT Total # of Minutes Spent Total Time Spent with Patient: Total time spent is greater than 50% in coordination of care (as documented) at patient's floor/unit and/or counseling patient: Coding Level of Care Code None Diagnoses Status post bilateral knee replacements Z96.653
--- NOTE | 2019-09-30 07:25 | Discharge Summary ---
Date of Service September 30, 2019 Admission HPI Per Admitting Provider Alfonzo is a pleasant 59-year-old male who is been ill with chronic increasing bilateral knee pain. He has been followed by my partner who was giving him serial injections of his knees. Unfortunately injections are not effective anymore. X-rays and clinical examination have been diagnostic for advanced osteoarthritis of both knees. After failing extensive conservative treatment, he has elected to proceed with bilateral total knee arthroplasties. Principal Diagnosis Bilateral knee replacements Discharge Data Allergies Allergy/AdvReac Type Severity Reaction Status Date / Time amoxicillin [From Augmentin] Allergy Unknown facial Verified 09/28/19 05:46 swelling, diffuse bumps clavulanic acid Allergy Unknown facial Verified 09/28/19 05:46 [From Augmentin] swelling, diffuse bumps latex Allergy Unknown skin Verified 09/28/19 05:46 irritation nickel Allergy Unknown per Verified 09/28/19 05:46 allergy testing clarithromycin [From Biaxin] AdvReac Unknown vomiting Verified 09/28/19 05:46 BANDAIDS Allergy Unknown skin Uncoded 09/15/19 10:23 irritation Consultations 09/28/19 11:30 Consult Case Management - Discharge Planning Routine Procedures Performed Operation Date: 09/28/19 07:15 Actual Procedures p Bilateral Total Knee Arthroplasty, Cemented(Bilateral) - Tano Vásquez DO Ordered Studies 09/28/19 05:00 US - OR guided needle placemen Routine Hospital Course (1) Status post bilateral knee replacements: On September 28, 2019 Alfonzo arrived at [facility] and underwent bilateral knee replacements without complication. He had a spinal anesthetic. Postoperatively he was started on aspirin for DVT prophylaxis and transferred to the general orthopedic floors. His hospital course was uneventful. On postop day #1 his H&H was stable and his pain was well controlled. He was able to participate well with physical therapy doing ambulation and range of motion exercises. On postop day #2 he continued to do fairly well. His dressings were changed. He worked with physical therapy 1 more time. He was then discharged to [facility]. He will follow-up with orthopedics in 2 weeks. Total Time Total Time Spent Total Time Spent (In Minutes): 20 Discharge Plan Discharge Items Patient Disposition: Transfer Inpatient Rehab Fac Reason For Visit: BILATERAL KNEE DEGENERATIVE JOINT DISEASE Discharge Diagnosis: Bilateral knee replacement Activity: As commented below Non-emergency contact: Surgeon Call non-emergency contact if: your wound has increased redness and your wound has increased drainage Follow-up/Referrals: Ronald Prather MD [Primary Care Provider] - Diet: Regular Addtl Attending Provider Instructions: Activity and Therapy Recommendations: * If you are using [facility] then therapy will be provided at your home until they feel you have accomplished all of your goals. * If you are using [facility] then Physical Therapy will be provided until they feel you are ready to start Outpatient Physical Therapy. * If you are not using home therapy then Outpatient Physical Therapy should start about 3-5 days from your day of surgery. Therapy will last about 6-10 weeks * It is important not to put a pillow under your knee when you are relaxing or sleeping. It is just as important to make sure you are getting your knee perfectly straight as it is to regain your knee bend. * You were shown a series of exercises in the hospital. Do these exercises three times each day including the exercises you were shown in physical therapy. * Get up and walk several times each day. For the first four weeks, try not to stand or walk for more than one hour at a time. If you do stand or walk for more than one hour, you will not hurt anything, but your leg will likely swell. * As you feel comfortable, you may change from the walker or crutches to a cane and then to independent walking. Medications: * Narcotic You will likely be sent home from the hospital with a prescription for the narcotic pain medication that worked best throughout your stay. * Aspirin Most patients will be required to take Aspirin 81mg twice a day for 6 weeks after surgery. This is obtained [id number] and a prescription is not necessary. * Other medications may be prescribed for specific circumstances. If you have any questions, please call the office at . * Resume previous home medications unless otherwise instructed TEDs/Elastic Stockings: The white elastic stockings help limit swelling and prevent blood clots from forming in your legs.~ The more you wear them, the more they work. Wear them for six weeks. Dressing Care: Leave the Silverlon dressing in place for 7 days. After 7 days remove the dressing. If the incision is not draining then you may leave the daniele open to air. If there is a little bit of drainage or if the daniele are getting stuck on your clothing then cover the incision with a dry dressing. The daniele will be removed at your 2 week follow-up appointment. Showering: You may shower with the Silverlon dressings in place. After 7 days you may remove the dressing and shower with the daniele exposed Let the soapy shower water run over the daniele and pat them dry. Do not scrub or soak the incision. Things To Watch For: * Drainage from the incision site that occurs more than one week after your surgery. * Increased redness at the incision site. * Fever above 102 degrees Fahrenheit. * Unusual chest pain or shortness of breath. * Call [facility] at with any of the above problems Follow-Up Visit: Follow-up with Dr. Vásquez's PA (Tano Cintron) 2-3 weeks after your day of cosme rgery. He will remove your daniele and answer any questions. If you have any additional questions or concerns, Dr Vásquez is usually in the office at the same time and will be available An appointment was probably scheduled when you signed-up for surgery in the office. If you have any questions call Office Instructions: More detailed instructions as well as Frequently Asked Questions were provided in a folder by our office when you signed-up for surgery. Please review these instructions when you get home. If you have any further questions or concerns, please feel free to call the office at [phone] Pending Studies at Discharge: No Stand-Alone Forms: My [facility] Skilled Items Patient informed of condition?: Yes DNR: No Discharge Level of Care: Acute rehab Communicable Disease: No Discharge Prognosis: Improving Lines: None Urinary Catheter: No Medications and DC Order Prescriptions: New oxycodone 5 mg Tablet 5 mg PO Q4H PRN (Reason: pain) Qty: 30 RF: 0 Continued metformin 500 mg Tablet 500 mg PO BID RF: 0 trandolapril 4 mg Tablet 4 mg PO BID RF: 0 diltiazem HCl 240 mg Capsule,Extended Release 24 Hr 240 mg PO QAM RF: 0 levothyroxine [Synthroid] 50 mcg Tablet 50 mcg PO QAM RF: 0 omeprazole 20 mg Capsule,Delayed Release(Dr/Ec) 20 mg PO QPM RF: 0 hydrochlorothiazide 25 mg Tablet 25 mg PO QAM RF: 0 diclofenac sodium 50 mg Tablet,Delayed Release (Dr/Ec) 50 mg PO BID PRN (Reason: Pain) RF: 0 magnesium 200 mg Tablet 420 mg PO BID RF: 0 potassium gluconate 595 mg (99 mg) Tablet 595 mg PO DAILY RF: 0 diclofenac sodium 1 % Gel 2 g TOPICAL UD PRN (Reason: Pain) RF: 0 Changed aspirin [Aspir-81] 81 mg Tablet,Delayed Release (Dr/Ec) 81 mg PO BID 42 Days Qty: 0 RF: 0 Discharge Orders: Discharge Order (Routine); Ordered 09/30/19 Ordered By: Tano Marshall/Other Patient Handouts: Managing Type 2 Diabetes Admission Data Admit Date/Time: 09/29/19 08:31 Attending Provider: Tano Vásquez Admit Provider: Tano Vásquez Primary Care Provider: Ronald Prather Other Providers: [facility] Other Interventions: Discharge Summary Assessment (RN) Last Done: 09/30/19 06:51 Coding Level of Care Code D/C Day Management <30 mins Diagnoses Status post bilateral knee replacements Z96.653
[2019-09-30] MEDS: INSULIN ASPART 100 UNITS/ML 3 ML PEN SC SCH ×4 (07:29→21:10)
[2019-09-30] MEDS: OXYCODONE HCL IR 5 MG TAB (IMMEDIATE RELEASE) PO PRN ×4 (10:11→22:03)
[2019-09-30] MEDS: PANTOprazole 40 MG TAB PO SCH (18:14)
[2019-09-30] MEDS: SENNA 8.6 MG TAB PO SCH (20:57)
[2019-10-01] MEDS: OXYCODONE HCL IR 5 MG TAB (IMMEDIATE RELEASE) PO PRN ×6 (02:02→22:15)
[2019-10-01] MEDS: LEVOTHYROXINE SODIUM 50 MCG TABLET PO SCH (06:17)
[2019-10-01] MEDS: ACETAMINOPHEN 500 MG TAB PO SCH ×3 (06:17→22:15)
[2019-10-01] MEDS: MAGNESIUM OXIDE 400 MG TAB PO SCH ×2 (07:32→21:05)
[2019-10-01] MEDS: DOCUSATE SODIUM 100 MG CAP PO SCH ×2 (07:32→21:04)
[2019-10-01] MEDS: hydroCHLOROthiazide 25 MG TAB PO SCH (07:32)
[2019-10-01] MEDS: lisinopriL 20 MG TAB PO SCH ×2 (07:32→21:05)
[2019-10-01] MEDS: ASPIRIN 81 MG ECTAB PO SCH ×2 (07:32→21:04)
[2019-10-01] MEDS: dilTIAZem HCL 240 MG CAPCR PO SCH (07:33)
[2019-10-01] MEDS: MULTIVITAMIN TAB PO SCH (07:33)
[2019-10-01] MEDS: INSULIN ASPART 100 UNITS/ML 3 ML PEN SC SCH ×4 (07:33→21:09)
--- NOTE | 2019-10-01 08:55 | Pharmacy Report ---
Pharmacy Glycemic Short Note 2 - Date of Service October 01, 2019 - Glycemic Short BSG Results (Last 24 hours): 09/30/19 09/30/19 09/30/19 12:00 17:27 20:46 POC Glucose 119 H 130 H 127 H 10/01/19 06:31 POC Glucose 120 H OUTPATIENT ANTIDIABETIC REGIMEN: * Metformin 500mg PO BID * HbA1c: 6.0% (09/29/19) ASSESSMENT: * BSGs have been very well controlled since discontinuation of dexamethasone * ranging 119-140 mg/dL yesterday - received only 10 units of prandial/correctional insulin * Fasting BSG of 120 mg/dL this morning - will continue to hold basal insulin * Novolog loosened yesterday and will loosen again today based on BSGs * Plan is for discharge to [facility] PLAN FOR INPATIENT GLYCEMIC CONTROL: * Hold outpatient oral diabetes medications * Basal insulin * Hold * Bolus insulin - loosen * NovoLog per scale ACHS or Q6hrs while NPO * Goal Range: Low 110 mg/dL - High 140 mg/dL * Correction Factor: 35 mg/dL/unit * Nutritional / Prandial insulin per carb ratio of 1 unit per 11 grams CHO consumed PLAN FOR DISCHARGE: * Patient's A1c (6.0%) indicates excellent glycemic control as an outpt. * Expect that patient may resume home regimen on discharge, as long as he does not report having episodes of hypoglycemia.
--- NOTE | 2019-10-01 17:49 | Orthopedic Progress Note ---
Date of Service October 01, 2019 Assessment & Plan (1) Status post bilateral knee replacements: Overall he is doing fairly well. He has been participating well with physical therapy. He has pain in his knees but is controlled with a oral pain medications. He is on aspirin for DVT prophylaxis. Unfortunately he has not been able to go to [facility]. His insurance denied him. He is awaiting to go to the [facility]. We are awaiting a rapid COVID test before we can send him to the MD. Once the test is back, and negative, he can be discharged. He will follow-up with orthopedics in 2 weeks. Present on Admission?: Yes Subjective Alfonzo was seen and examined at bedside. Overall he is doing fairly well. He has been ambulating well with physical therapy. His knees look good. He has no complaints. Physical Exam Musculoskeletal: On physical examination of both knees, he has some ecchymosis in his medial thighs. The dressings are clean and dry. He is neurovascularly intact. Results & Data ([facility]) Vital Signs (Past 12 Hours) Vital Signs Temp Pulse Resp BP Pulse Ox 10/01/19 16:00 36.8 C 79 16 130/68 97 10/01/19 06:35 36.7 C 83 16 135/52 L 98 PG Care Time/CCT Total # of Minutes Spent Total Time Spent with Patient: Total time spent is greater than 50% in coordination of care (as documented) at patient's floor/unit and/or counseling patient: Coding Level of Care Code None Diagnoses Status post bilateral knee replacements Z96.653
[2019-10-01] MEDS: PANTOprazole 40 MG TAB PO SCH (21:04)
[2019-10-01] MEDS: SENNA 8.6 MG TAB PO SCH (21:04)
[2019-10-02] MEDS: OXYCODONE HCL IR 5 MG TAB (IMMEDIATE RELEASE) PO PRN ×2 (05:53→10:20)
[2019-10-02] MEDS: LEVOTHYROXINE SODIUM 50 MCG TABLET PO SCH (05:53)
[2019-10-02] MEDS: ACETAMINOPHEN 500 MG TAB PO SCH (05:53)
[2019-10-02] MEDS: DOCUSATE SODIUM 100 MG CAP PO SCH (07:03)
[2019-10-02] MEDS: dilTIAZem HCL 240 MG CAPCR PO SCH (07:03)
[2019-10-02] MEDS: ASPIRIN 81 MG ECTAB PO SCH (07:03)
[2019-10-02] MEDS: MAGNESIUM OXIDE 400 MG TAB PO SCH (07:03)
[2019-10-02] MEDS: hydroCHLOROthiazide 25 MG TAB PO SCH (07:04)
[2019-10-02] MEDS: lisinopriL 20 MG TAB PO SCH (07:04)
[2019-10-02] MEDS: MULTIVITAMIN TAB PO SCH (07:04)
[2019-10-02] MEDS: INSULIN ASPART 100 UNITS/ML 3 ML PEN SC SCH (07:42)
== END 2019-10-02 12:10 | DRG 462 ==
LOC: 3E 05:19 → ASU 05:19